=== PATIENT | female | born 1990 | race Caucasian/White ===

== ENCOUNTER 2024-04-27 23:44 | Emergency (ER) | payer MEDICAID ==
[~2024-04-27] VITALS: Ht 160 cm; Wt 63.6 kg
[2024-04-28] MEDS ORDERED: TRIA15CR61 TOP (01:24)
[2024-04-28] MEDS: triamcinolone acetonide 40mg/ml inj IM ONE (01:38)
[2024-04-28] MEDS: dexamethasone sod phosphate 10mg/ml inj IM STA (01:38)
[2024-04-28 01:47] VITALS: BP 123/76; PULSE 88; RESP 14; TEMP 98.5; O2SAT 97
== END 2024-04-28 01:49 | disposition home or self-care (01) ==
LOC: ER 23:46
DX: L23.7 Allergic contact dermatitis due to plants, except food (principal); Z79.899 Other long term (current) drug therapy
CPT/HCPCS: 96372; 99284; J1100; J3301

== ENCOUNTER 2024-11-20 10:13 | Emergency (ER) | payer MEDICAID ==
[~2024-11-20] VITALS: Ht 160 cm; Wt 66.9 kg
[2024-11-20 11:01] VITALS: BP 122/68; PULSE 67; RESP 16; TEMP 98.2; O2SAT 98
== END 2024-11-20 11:04 | disposition home or self-care (01) ==
LOC: ER 10:14
DX: Z88.2 Allergy status to sulfonamides (principal); F10.10 Alcohol abuse, uncomplicated; Y90.9 Presence of alcohol in blood, level not specified
CPT/HCPCS: 99281